=== PATIENT | female | born 1995 | race Caucasian/White ===

== ENCOUNTER 2021-11-06 08:45 | Emergency (ER) | payer OTHER ==
[~2021-11-06] VITALS: Ht 162.6 cm; Wt 77.1 kg
--- NOTE | 2021-11-06 08:46 | NUR ---
PT BIBA TO BED 02.
[2021-11-06 08:49] VITALS: BP 139/82
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
[2021-11-06] MEDS ORDERED: IBUPROFEN 600 MG TAB PO ONE (09:10)
[2021-11-06] MEDS ORDERED: LIDO1ADH47 TP (09:23)
[2021-11-06] MEDS ORDERED: IBUP-2213 PO (09:23)
[2021-11-06 09:36] VITALS: BP 139/82
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
== END 2021-11-06 09:37 | disposition home or self-care (01) ==
LOC: MED 08:45
DX: S16.1XXA Strain of muscle, fascia and tendon at neck level, initial encounter (principal); S00.93XA Contusion of unspecified part of head, initial encounter; V49.88XA Car occupant (driver) (passenger) injured in other specified transport accidents, initial encounter; Y93.89 Activity, other specified; Y92.89 Other specified places as the place of occurrence of the external cause; Y99.8 Other external cause status
CPT/HCPCS: 81002; 81025; 99283